=== PATIENT | female | born 1980 | race Caucasian/White ===

== ENCOUNTER 2023-12-21 19:00 | Emergency (ER) | payer OTHER, SELFPAY ==
--- NOTE | ~2023-12-21 | XR_ITS ---
EXAMINATION: Soft tissue neck and chest exam. CLINICAL INDICATION: Foreign body ingestion. TECHNIQUE: 2 views soft tissue neck and one view chest exam. COMPARISON: None. FINDINGS: CHEST: The lungs are well-expanded and clear. The heart size and pulmonary vascularity is normal. No gross bony abnormality seen. Soft tissue neck: There is a small radiopaque foreign body seen overlying the right nostril on AP view. This is not visualized on the lateral view of the neck. The airway is widely patent. The prevertebral soft tissues are normal. XR/XR soft tissue neck IMPRESSION: Unremarkable chest exam. Radiopaque foreign bodies seen overlying the right nostril and AP view not visualized on the lateral view. The airway is widely patent. Electronically signed by: Lázaro Gannon MD 12/21/2023 09:10 PM EDT
--- NOTE | ~2023-12-21 | XR_ITS ---
EXAMINATION: Soft tissue neck and chest exam. CLINICAL INDICATION: Foreign body ingestion. TECHNIQUE: 2 views soft tissue neck and one view chest exam. COMPARISON: None. FINDINGS: CHEST: The lungs are well-expanded and clear. The heart size and pulmonary vascularity is normal. No gross bony abnormality seen. Soft tissue neck: There is a small radiopaque foreign body seen overlying the right nostril on AP view. This is not visualized on the lateral view of the neck. The airway is widely patent. The prevertebral soft tissues are normal. XR/XR chest 1V IMPRESSION: Unremarkable chest exam. Radiopaque foreign bodies seen overlying the right nostril and AP view not visualized on the lateral view. The airway is widely patent. Electronically signed by: Lázaro Gannon MD 12/21/2023 09:10 PM EDT
[2023-12-21 19:04] VITALS: BP 117/84; BP 144/88; PULSE 100; PULSE 76; RESP 17; TEMP 37.1; O2SAT 98; O2SAT 99; BMI 25.7
--- NOTE | 2023-12-21 19:16 | PC.NURSE ---
this rn assumed care of pt. pt biba from home, respirations clear and unlabored, vss. pt a&ox4. pt reports swallowing a chicken bone and feeling it 'lodge' in her throat. pt reports scratchy feeling in throat with 'aggressive spitting up' blood tinged spit. pt to x ray at this time.
--- NOTE | 2023-12-21 19:35 | ED_ITS ---
HPI - General Adult General Chief complaint: General Medical Stated complaint: partial airway abstruction, ckn bone in soup Time Seen by Provider: 12/21/23 19:08 History of Present Illness ED Provider: Jese VASQUEZ narrative: 43-year-old female presenting for foreign body ingestion. Patient was eating chicken soup earlier this evening and felt that she swallowed a chicken bone. She has been experiencing pain and foreign body sensation to the back of her th roat. She has also coughed up scant blood. Patient was brought in by EMS. Her vitals were stable in transport and she is protecting her airway. Patient denies chest pain, shortness of breath. Related Data Allergies Allergy/AdvReac Type Severity Reaction Status Date / Time No Known Allergies Allergy Verified 12/21/23 19:10 Review of Systems Review of Systems: Patient endorses pain and foreign body sensation to the back of her throat Patient denies chest pain, shortness of breath, abdominal pain, difficulty breathing PMFSH Social History Social History Smoked in Last 30 Days: No Use of substances other than those prescribed or required for medical reasons: No Advance Directives: No Advance Directives Information Provided: No Do you have a plan to hurt others: No Plan Patient : No Physical Exam ED Vital Signs: Vital Signs - 24 hr 12/21/23 19:04 Temperature 98.7 F Pulse Rate 76 Respiratory Rate 17 Blood Pressure 117/84 Pulse Oximetry 99 Oxygen Delivery Method Room Air BMI result Body Mass Index 25.7 Lungs clear to auscultation bilaterally; no audible stridor; normal S1-S2 regular rate rhythm; oropharynx appears clear Medical Decision Making Medical Decision Making [facility] Narrative: 43-year-old female presenting with foreign body ingestion. Patient feels this foreign body is struck in her throat. I am concerned that patient does have a lodged foreign body as she has spit up blood and still appears uncomfortable. Xray soft tissue neck ordered and I appreciate a slim foreign body in posterior oropharynx [facility] at [facility] consulted and Dr. Thompson accepted patient for ED to ED transfer. Dr. Kelley is the accepting ED provider. At this time patient is stable for transfer. She is tolerating her secretions and protecting her airway and does not appear to be in respiratory distress Differential Diagnosis Differential Diagnoses: The differential diagnosis associated with the presentation includes Lodged foreign body Discharge Plan Discharge Clinical Impression: Foreign body ingestion Patient Disposition: [facility] Transfer Details: [facility] Print Language: Surinamese
[2023-12-21 21:30] VITALS: BP 153/91; PULSE 66; RESP 18; TEMP 37.1; O2SAT 99
--- NOTE | 2023-12-21 22:07 | PC.NURSE ---
ems at bedside for report.
[2023-12-21 22:10] VITALS: BP 153/91; PULSE 66; RESP 18; TEMP 37.1; O2SAT 99
--- NOTE | 2023-12-21 22:10 | PC.NURSE ---
report given to Harika COPELAND at [facility] ED.
== END 2023-12-21 22:11 | disposition short-term general hospital (02) ==
PROVIDERS: Emergency Provider Student in an Organized Health Care Education/Training Program
DX: T17.1XXA Foreign body in nostril, initial encounter (principal); W44.F3XA Food entering into or through a natural orifice, initial encounter; Y93.89 Activity, other specified; Y92.009 Unspecified place in unspecified non-institutional (private) residence as the place of occurrence of the external cause; Y99.9 Unspecified external cause status
CPT/HCPCS: 70360; 71045; 99285